=== PATIENT | female | born 1960 | race Caucasian/White ===

== ENCOUNTER 2025-04-02 12:25 | Outpatient (CLI) | payer OTHER | END 2025-04-02 12:26 | disposition home or self-care (01) | LOC: RAD 12:25 | PROVIDERS: ATTEND Thoracic Surgery (Cardiothoracic Vascular Surgery) | DX: R91.8 Other nonspecific abnormal finding of lung field (principal); J91.0 Malignant pleural effusion; J98.11 Atelectasis | CPT/HCPCS: 71046 ==

== ENCOUNTER 2025-04-07 12:45 | Outpatient (CLI) | payer OTHER, MEDICARE ==
[2025-04-07 13:50] LABS: #Basophils 0.06 10x3/uL (0.0-0.2); #Eosinophils 0.09 10x3/uL (0.0-0.7); #Monocytes 1.05 10x3/uL (0.11-0.59); #Neutrophils 10.49 10x3/uL (1.40-6.50); %Basophils 0.5 % (0.0-1.0); %Eosinophils 0.7 % (0.0-10.0); %Lymphocytes 7.6 % (21.0-51.0); %Monocytes 8.2 % (0.0-10.0); %Neutrophils 82.0 % (42.0-75.0); Hematocrit 29.3 % (36.0-47.0); Hemoglobin 8.9 g/dL (12.0-16.0); Mean Corpuscular Hemoglobin 26.1 pg (27.0-31.0); Mean Corpuscular Volume 85.9 fL (78.0-98.0); Platelet Count 571 10x3/uL (130-400); Red Blood Cell (RBC) Count 3.41 mill/uL (4.20-5.40); White Blood Cell (WBC) Count 12.79 10x3/uL (4.8-10.8)
[2025-04-07 14:04] LABS: Anion Gap 15 mmol/L (10-20); BUN (Urea Nitrogen) 25 mg/dL (9.8-20.1); Calc. Creatinine Clearance 0 mL/min (70-130); Calcium 9.5 mg/dL (7.8-10.44); Carbon Dioxide 21 mmol/L (23-31); Chloride 103 mmol/L (98-107); Glucose 187 mg/dL (80-115); Potassium 4.7 mmol/L (3.5-5.1); Sodium 134 mmol/L (136-145)
== END 2025-04-07 12:46 | disposition home or self-care (01) ==
LOC: LABBT 12:45
PROVIDERS: ATTEND Thoracic Surgery (Cardiothoracic Vascular Surgery)
DX: Z01.818 Encounter for other preprocedural examination (principal); J91.0 Malignant pleural effusion
CPT/HCPCS: 80048; 85025

== ENCOUNTER 2025-04-08 05:51 | Inpatient (IN) | payer OTHER ==
[2025-04-08] MEDS ORDERED: CEFAZOLIN 2 GM VIAL ONE (06:20)
[2025-04-08] MEDS ORDERED: PROPOFOL 20 ML ONE (07:09)
[2025-04-08] MEDS ORDERED: Rocuronium Bromide 10 MG/ML (10ML VIAL) ONE (07:10)
[2025-04-08] MEDS ORDERED: Ondansetron PF 4 MG/2 ML Vial ONE (07:10)
[2025-04-08] MEDS ORDERED: Lidocaine 1% PF 5 ML VIAL ONE (07:10)
[2025-04-08] MEDS ORDERED: CEFAZOLIN 1 GM VIAL ONE (07:28)
[2025-04-08] MEDS ORDERED: SUGAMMADEX SODIUM 200 MG/2 ML VIAL ONE (08:31)
[2025-04-08] MEDS ORDERED: fentaNYL PF 100 MCG/2 ML SYRINGE ONE (09:23)
[2025-04-08] MEDS ORDERED: HYDROmorphone 0.5 MG/0.5 ML SYRINGE ONE ×3 (09:30→10:19)
[2025-04-08] MEDS ORDERED: diphenhydrAMINE 50 MG/ML VIAL IM PRN (09:52)
[2025-04-08] MEDS ORDERED: diphenhydrAMINE 50 MG/ML VIAL IVP PRN (09:52)
[2025-04-08] MEDS ORDERED: Ondansetron PF 4 MG/2 ML Vial IVP PRN ×2 (09:52→12:16)
[2025-04-08] MEDS ORDERED: diphenhydrAMINE 25 MG CAP PO PRN (09:52)
[2025-04-08] MEDS ORDERED: fentaNYL Citrate/PF 55 ML IV SCH (10:00)
[2025-04-08] MEDS ORDERED: Communication Order-Pharmacy FS SCH (10:00)
[2025-04-08] MEDS: Gabapentin 300 MG CAP PO SCH ×2 (15:22→21:18)
[2025-04-08] MEDS: Lisinopril 20 MG TAB PO SCH (15:22)
[2025-04-08] MEDS: metFORMIN 500 MG TAB PO SCH ×2 (15:23→21:17)
[2025-04-08] MEDS: Rosuvastatin 10 MG TAB PO SCH (15:23)
[2025-04-08 19:56] VITALS: BMI 47.2
[2025-04-09 04:01] LABS: #Basophils Less than 0.03 10x3/uL (0.0-0.2); #Eosinophils Less than 0.03 10x3/uL (0.0-0.7); #Monocytes 1.23 10x3/uL (0.11-0.59); #Neutrophils 12.49 10x3/uL (1.40-6.50); %Basophils 0.1 % (0.0-1.0); %Eosinophils 0.1 % (0.0-10.0); %Lymphocytes 5.5 % (21.0-51.0); %Monocytes 8.3 % (0.0-10.0); %Neutrophils 84.7 % (42.0-75.0); Hematocrit 21.9 % (36.0-47.0); Hemoglobin 6.5 g/dL (12.0-16.0); Mean Corpuscular Hemoglobin 25.4 pg (27.0-31.0); Mean Corpuscular Volume 85.5 fL (78.0-98.0); Platelet Count 515 10x3/uL (130-400); Red Blood Cell (RBC) Count 2.56 mill/uL (4.20-5.40); White Blood Cell (WBC) Count 14.75 10x3/uL (4.8-10.8)
[2025-04-09 04:14] LABS: Anion Gap 17 mmol/L (10-20); BUN (Urea Nitrogen) 32 mg/dL (9.8-20.1); Calc. Creatinine Clearance 74 mL/min (70-130); Calcium 8.4 mg/dL (7.8-10.44); Carbon Dioxide 19 mmol/L (23-31); Chloride 102 mmol/L (98-107); Glucose 174 mg/dL (80-115); Potassium 5.7 mmol/L (3.5-5.1); Sodium 132 mmol/L (136-145)
[2025-04-09] MEDS: Lisinopril 20 MG TAB PO SCH (09:00)
[2025-04-09] MEDS: Rosuvastatin 10 MG TAB PO SCH (09:43)
[2025-04-09 11:04] VITALS: BMI 47.2
[2025-04-09] MEDS: HYDROcodone/Acetaminophen 5/325 mg Tablet PO PRN (16:22)
[2025-04-09] MEDS: Transdermal Patch Removal TOP SCH (21:28)
[2025-04-10 05:01] LABS: #Basophils 0.03 10x3/uL (0.0-0.2); #Eosinophils 0.13 10x3/uL (0.0-0.7); #Monocytes 1.12 10x3/uL (0.11-0.59); #Neutrophils 11.59 10x3/uL (1.40-6.50); %Basophils 0.2 % (0.0-1.0); %Eosinophils 0.9 % (0.0-10.0); %Lymphocytes 6.8 % (21.0-51.0); %Monocytes 8.0 % (0.0-10.0); %Neutrophils 82.3 % (42.0-75.0); Hematocrit 24.7 % (36.0-47.0); Hemoglobin 7.7 g/dL (12.0-16.0); Mean Corpuscular Hemoglobin 25.8 pg (27.0-31.0); Mean Corpuscular Volume 82.6 fL (78.0-98.0); Platelet Count 445 10x3/uL (130-400); Red Blood Cell (RBC) Count 2.99 mill/uL (4.20-5.40); White Blood Cell (WBC) Count 14.08 10x3/uL (4.8-10.8)
[2025-04-10 11:55] VITALS: BP 100/62; TEMP 98.9
[2025-04-13] MEDS ORDERED: PNEUMOC 20-VAL CONJ-DIP CRM/PF 0.5 ML SYRINGE IM ONE (09:00)
[2025-04-13] MEDS ORDERED: FLU (Fluad Triv) 25-26 (65UP)PF 45 MCG/0.5 ML Syringe IM ONE (09:00)
== END 2025-04-10 12:39 | disposition home or self-care (01) | DRG 982 ==
LOC: SDC 05:51 → PCU 11:43
PROVIDERS: ADMIT Thoracic Surgery (Cardiothoracic Vascular Surgery); ATTEND Thoracic Surgery (Cardiothoracic Vascular Surgery)
PROC: 0BCL4ZZ Extirpation of Matter from Left Lung, Percutaneous Endoscopic Approach (ICD-10-PCS; principal; 2025-04-08)
DX: C79.82 Secondary malignant neoplasm of genital organs (principal); J91.0 Malignant pleural effusion; E11.9 Type 2 diabetes mellitus without complications; I10 Essential (primary) hypertension; I48.91 Unspecified atrial fibrillation; Z87.891 Personal history of nicotine dependence; Z79.01 Long term (current) use of anticoagulants; Z79.84 Long term (current) use of oral hypoglycemic drugs; Z79.899 Other long term (current) drug therapy
CPT/HCPCS: 36416; 36430; 71045; 80048; 85025; 86850; 86900; 86901; 88305; 88341; 88342; 94640; A7048; J0169; J0665; J0690; J1171; J2405; J2550; J2704; J3010; P9016